=== PATIENT | female | born 1985 | race African-American/Black ===

== ENCOUNTER → 2016-12-11 | Outpatient (CLI) | payer BC | LOC: OD 14:55 | PROVIDERS: ATTEND Family Medicine | DX: M54.2 Cervicalgia (principal) | CPT/HCPCS: 72050 ==

== ENCOUNTER → 2016-12-25 | Outpatient (CLI) | payer BC | LOC: RAD 17:20 | PROVIDERS: ATTEND Family Medicine | DX: M54.2 Cervicalgia (principal); M50.30 Other cervical disc degeneration, unspecified cervical region | CPT/HCPCS: 72141 ==

== ENCOUNTER 2018-08-01 16:05 | Emergency (ER) | payer BC ==
[2018-08-01] MEDS ORDERED: PHENAZOPYRIDINE HCL 100 MG TABLET PO ONE (16:32)
--- NOTE | 2018-08-01 16:32 | ER Document Report ---
ED GI/ - General Chief Complaint: Pelvic Problem Stated Complaint: PELVIC PAIN Time Seen by Provider: 08/01/18 16:28 Notes: 33-year-old pleasant female to the emergency department complaining of increased amount of urination and frequency. States that she has some burning and discomfort and cramping in the lower abdomen. Increased frequency of urination. Denies any flank pain. No vomiting. No other major symptoms at this time. Denies any abnormal vaginal discharge. TRAVEL OUTSIDE OF THE [place] IN LAST 30 DAYS: No - HPI Patient complains to provider of: Abdominal pain, Dysuria Onset: Just prior to arrival - Related Data Allergies/Adverse Reactions: ketchup Allergy (Uncoded 08/01/18 16:25) Past Medical History - General Information source: Patient - Social History Smoking Status: Never Smoker Chew tobacco use (# tins/day): No Frequency of alcohol use: Occasional Drug Abuse: None Lives with: Family Family History: Reviewed & Not Pertinent Patient has suicidal ideation: No Patient has homicidal ideation: No Neurological Medical History: Reports: Hx Migraine Renal/ Medical History: Denies: Hx Peritoneal Dialysis - Immunizations Immunizations up to date: Yes Hx Diphtheria, Pertussis, Tetanus Vaccination: No Review of Systems - Review of Systems Constitutional: denies: Chills, Diaphoresis, Malaise, Weakness Cardiovascular: denies: Palpitations, Heart racing, Orthopnea Respiratory: denies: Cough, Hurts to breathe, Wheezing Gastrointestinal: See HPI, Abdominal pain. denies: Diarrhea, Nausea Genitourinary: Burning, Dysuria, Frequency, Urgency Female Genitourinary: denies: , Vaginal discharge, Vaginal odor Musculoskeletal: denies: Back pain, Joint pain, Muscle pain Physical Exam - Vital signs Vitals: Temp Pulse Resp BP Pulse Ox 98.3 F 83 18 133/80 H 98 08/01/18 16:11 08/01/18 16:11 08/01/18 16:11 08/01/18 16:11 08/01/18 16:11 Interpretation: Normal - General General appearance: Appears well, Alert - Respiratory Respiratory status: No respiratory distress Chest status: Nontender Breath sounds: Normal Chest palpation: Normal - Cardiovascular Rhythm: Regular Heart sounds: Normal auscultation Murmur: No - Abdominal Inspection: Normal Distension: No distension Bowel sounds: Normal Tenderness: Nontender Organomegaly: No organomegaly - Back Back: Normal, Nontender. No: Deformity/step-off, CVA tenderness - Neurological Cognition: Normal Orientation: AAOx4 Cranial nerves: Normal Course - Re-evaluation Re-evalutation: 08/01/18 16:42 This on what patient is describing it seems like she is more likely has a urinary tract infection. We will give him some Pyridium at this time. Took some ibuprofen already. - Vital Signs Vital signs: Temp Pulse Resp BP Pulse Ox 98.3 F 83 18 133/80 H 98 08/01/18 16:11 08/01/18 16:11 08/01/18 16:11 08/01/18 16:11 08/01/18 16:11 - Laboratory Laboratory results interpreted by me: 08/01/18 16:05 Urine Blood SMALL H Discharge - Discharge Clinical Impression: Pelvic pain
[2018-08-01 16:40] LABS: APPEARANCE,URINE CLEAR; BILIRUBIN,URINE NEGATIVE (NEGATIVE); COLOR,URINE YELLOW; GLUCOSE, URINE NEGATIVE (NEGATIVE); KETONES,URINE NEGATIVE (NEGATIVE); LEUKOCYTE ESTERASE,URINE NEGATIVE (NEGATIVE); NITRITE,URINE NEGATIVE (NEGATIVE); PROTEIN,URINE NEGATIVE (NEGATIVE); UROBILINOGEN,URINE NEGATIVE mg/dL (<2.0)
--- NOTE | 2018-08-01 17:29 | ER Document Report ---
HPI - HPI Patient complains to provider of: DYSURIA Time Seen by Provider: 08/01/18 16:28 Onset: Yesterday Onset/Duration: Persistent Quality of pain: Pressure Severity: Moderate Pain Level: 3 Context: This 33-year-old female presents to the emergency department with complaints of pressure and urinary frequency since yesterday. Denies pain with void but feels pressure in her lower pelvic area with void. Feels relief after she voids. Reports she is voiding a lot of urine. Denies fever vomiting diarrhea. Denies vaginal discharge. Denies vaginal smell. Reports one sexual partner and uses condoms for protection. Associated Symptoms: None Exacerbated by: Denies Relieved by: Denies Similar symptoms previously: No Recently seen / treated by doctor: No - GASTROINTESTINAL Gastrointestinal: REPORTS: Abdominal Pain - suprapubic - URINARY Urinary: REPORTS: Dysuria, Frequency - REPRODUCTIVE Reproductive: DENIES: : Past Medical History - General Information source: Patient Last Menstrual Period: just finished - Social History Smoking Status: Never Smoker Chew tobacco use (# tins/day): No Frequency of alcohol use: Occasional Drug Abuse: None Occupation: [employer] Lives with: Family Family History: Reviewed & Not Pertinent Patient has suicidal ideation: No Patient has homicidal ideation: No Neurological Medical History: Reports: Hx Migraine Renal/ Medical History: Denies: Hx Peritoneal Dialysis Surgical Hx: Negative - Immunizations Immunizations up to date: Yes Hx Diphtheria, Pertussis, Tetanus Vaccination: No Vertical Provider Document - CONSTITUTIONAL Agree With Documented VS: Yes Exam Limitations: No Limitations General Appearance: WD/WN, No Apparent Distress - INFECTION CONTROL TRAVEL OUTSIDE OF THE [place] IN LAST 30 DAYS: No - HEENT HEENT: Atraumatic, Normocephalic - NECK Neck: Normal Inspection, Supple. negative: Lymphadenopathy-Left, Lymphadenopathy-Right - RESPIRATORY Respiratory: Breath Sounds Normal, No Respiratory Distress - CARDIOVASCULAR Cardiovascular: Regular Rate - GI/ABDOMEN Gastrointestinal: Abdomen Soft, Abdomen Tender - left lower abd/pelvic region ttp - BACK Back: Normal Inspection - denies pain - MUSCULOSKELETAL/EXTREMETIES Musculoskeletal/Extremeties: MAEW, FROM - NEURO Level of Consciousness: Awake, Alert - DERM Integumentary: Warm, Dry Adult Front & Back Diagram: 1 - ttp Course - Re-evaluation Re-evalutation: 08/01/18 17:30 Patient was shown a copy of her labs. It does not look like she has a UTI via the clean catch. Patient was instructed on the importance of pelvic. She declines. We discussed the culture. We discussed the area of pain that could be anything from bacterial vaginosis to colitis. Patient would like to try antibiotics and Pyridium. She was instructed to follow-up with a primary care provider for a pelvic and recheck if she does not feel any better. She does not have a current provider. We discussed provider she would feel comfortable with. I gave patient my card my office number and told her to call me if she has any concerns. Dictation of this chart was performed using voice recognition software; therefore, there may be some unintended grammatical errors. - Vital Signs Vital signs: Temp Pulse Resp BP Pulse Ox 98.3 F 83 18 133/80 H 98 08/01/18 16:11 08/01/18 16:11 08/01/18 16:11 08/01/18 16:11 08/01/18 16:11 - Laboratory Laboratory results interpreted by me: 08/01/18 16:05 Urine Blood SMALL H Discharge - Discharge Clinical Impression: Pelvic pain, UTI symptoms Condition: Stable Disposition: HOME, SELF-CARE Instructions: Nitrofurantoin ([facility]), Urinary Anesthetic Agent ([facility]), Urinary Tract Infection ([facility]) Additional Instructions: *You have been evaluated for pain while voiding, UTI symptoms *Your urine has been sent for a culture. *You need a pelvic *Take medication as prescribed *Push fluids *Follow up with your primary care provider within one week *Plan urine recheck in one week *Return to ED for worsening condition, changes, needs, increased pain Monitor your blood pressure. Your blood pressure was elevated today. This may be because you were anxious, in pain or because you need medication. It is important to follow up with your primary care provider for full evaluation. Prescriptions: Nitrofurantoin/Nitrofuran Mac [Macrobid 100 mg Capsule] 100 mg PO BID #20 capsule Phenazopyridine HCl [Pyridium 200 mg Tablet] 200 mg PO TID #15 tablet Forms: Elevated Blood Pressure
[2018-08-01 18:19] VITALS: BP 128/78
== END 2018-08-01 18:19 | disposition home or self-care (01) ==
LOC: ER 16:05
DX: R10.2 Pelvic and perineal pain (principal); R30.0 Dysuria; R35.0 Frequency of micturition
CPT/HCPCS: 99283; 87086; 81025; 81001; J3490